=== PATIENT | male | born 1950 | race Caucasian/White ===

== ENCOUNTER 2020-10-09 17:22 | Emergency (ER) | payer MEDICARE, SELFPAY ==
[2020-10-09] VITALS (31 sets, daily range): BP systolic 109–134; BP diastolic 72–89; PULSE 60–77; RESP 12–21; TEMP 36.5–36.7; O2SAT 95–100
--- NOTE | 2020-10-09 17:15 | RT.EKG_ITS ---
APPROVED REPORT Exam: Resting ECG Reason for Exam: Patient Location: E HR:73 bpm ECG Measurements Heart Rate 73 AXIS [place] 157 P 36 QRSd 105 QRS 30 QT 363 T 51 QTc 400 Conclusion Sinus rhythm...normal P axis, V-rate 60- 99. No STEMI. I have reviewed and interpreted ECG and agree with software generated interpretation.
--- NOTE | 2020-10-09 17:30 | DI.RAD_ITS ---
Exam(s) XR CHEST 2V PA LATERAL EXAM: XR CHEST 2V PA LATERAL CLINICAL HISTORY: CP TECHNIQUE: 2D digital imaging was performed. COMPARISON: CR CHEST 2 VIEWS PA,LAT from 08/31/2017 FINDINGS: MEDIASTINUM: Normal. HEART: Normal. PULMONARY VASCULATURE: Normal. LUNGS: Clear. PLEURAL SPACE: No pleural effusion or pneumothorax. BONE:Unremarkable for age. IMPRESSION: No acute abnormality. DATA REPOSITORY: RADIATION DOSE DELIVERED:
--- NOTE | 2020-10-09 17:38 | W.ED.GENAD ---
Discharge Plan Disposition Patient Disposition: HOME Condition: Stable Discharge Details Clinical Impression: Chest pain Primary Care Provider: Teresa,Local ED Provider: Taina Rojas Home Meds and New Rx's Prescriptions: Continued simvastatin 40 MG tablet 1 tab PO DAILY RF: 0 levothyroxine 112 MCG tablet 112 mcg PO DAILY RF: 0 Discharge Instructions Instructions: Chest Pain (ED) Additional Instructions: While you do not have evidence at this time for active heart attack, as we discussed, I am concerned for possible heart disease. I would like for you to have an outpatient stress test soon as possible. I have also asked our care management team to ensure that you get close follow-up with primary care locally. If you develop recurrence or worsening chest pain, shortness of breath, difficulty breathing or other new/worsening symptoms please seek care urgently once again. Please begin taking aspirin daily. Please try to not overexert yourself. Discharge Data Discharge Date/Time-TO BE ENTERED AT DEPARTURE: 10/09/20 21:55 Medical Decision Making Patient is a pleasant 70 year old male presenting today with c/c of chest discomfort that began 5 days ago. He states that he had a very active day which culminated with him jumping into a cold like. He states only when he did so he had a sudden onset of pressure that radiated from the left chest up towards the left side of the neck and down the left arm. Pressure has been consistent since then although he does report that it worsens when he is trying to exercise. States that he attempted to bike 10 miles with only able to go to today secondary to chest pain. States that typically he is very active and exercises on a daily basis with no limitations. Patient reports he did have a stress test approximately 5 years ago which was normal. X-ray performed at [facility]. He denies any nausea or vomiting. States that when pain increases he can experience shortness of breath. On exam, patient appears nontoxic. Vital signs are stable. Normal cardiac exam. He does have pain with palpation over the left side of anterior chest wall. No creptius. Lungs clear. ECG obtained. Reviewed by Dr. Hurley with no acute abnormality noted. CXR reivewed by radiologist: FINDINGS: Lungs: Unremarkable. No consolidation. Pleural spaces: Unremarkable. No pleural effusion. No pneumothorax. Heart/Mediastinum: Unremarkable. No cardiomegaly. Bones/joints: Unremarkable. IMPRESSION: No acute findings. Labs reivewed, no leukocytosis. Stable H&H. CMP WNL. Discussed findings with the patient. He continues to be pain free. Concerned at this time for angina vs. muscular pain. Pain was reproducible on exam with palpation. Will obtain repeat troponin. Repeat troponin remains less than 0.05. Discussed the findings with the patient. Heart score is 4. Patient discussed inpatient versus outpatient admission. As he is at moderate risk, I did recommend inpatient admission. Discussed possibility of unstable angina with the patient. However, patient would prefer ]outpatient management. He would prefer to be discharged to home with plan to lay low and return urgently with new/worsening symptoms. Plan for stress test as soon as possible and f/u with cardiology. Strict return precautions were discussed. All of his questions and concerns were addressed, he is in agreement with this plan. HPI General Mode of arrival: ambulatory. Date/Time Provider Initiated Documentation: 10/09/20 17:24. Limitations to Documentation: no limitations. Information obtained by: patient and RN notes reviewed. History of Present Illness 70 year old M presents to the emergency department with the chief complaint of chest pain, described as moderate, with intensity rated at 7. Quality is described as aching, and is localized to the chest. Patient neck. Patient started experiencing this day(s) and it has been intermittent. Immobilization improves symptom(s), Movement worsens symptoms . Patient notes no other symptoms. and weakness; denies cough, fever/chills, nausea/vomiting, shortness of breath and syncope. Patient did receive the following treatments prior to arrival, none Related Data Home Medications Medication Instructions Recorded Confirmed simvastatin 1 tab PO DAILY 10/02/15 10/09/20 levothyroxine 112 mcg PO DAILY 09/09/17 10/09/20 Allergies Allergy/AdvReac Type Severity Reaction Status Date / Time gluten AdvReac Unverified 10/09/20 17:30 wheat AdvReac Unverified 10/09/20 17:30 General Stated Complaint: Chest Pain SKIP: 2 Review of Systems Constitutional Constitutional: Reports as per HPI, Denies chills, Denies fever(s) and Denies headache(s) ENT Ears, Nose, Mouth, and Throat: Denies dizziness and Denies headache(s) Cardiovascular Cardiovascular: Reports as per HPI, Denies dyspnea and Denies dyspnea on exertion Respiratory Respiratory: Reports as per HPI, Denies chest congestion, Denies cough, Denies pain on inspiration, Denies pain with cough, Denies dyspnea, Denies dyspnea on exertion and Denies wheezing Gastrointestinal Gastrointestinal: Reports as per HPI, Denies abdominal pain, Denies diarrhea, Denies nausea and Denies vomiting Musculoskeletal Musculoskeletal: Reports as per HPI and Denies back pain Integumentary/Breasts Skin/Breast: Reports as per HPI and Denies rash Neurologic Neurologic: Reports as per HPI, Denies dizziness and Denies headache(s) Allergic/Immunologic Allergic/Immunologic: Denies wheezing [facility] Social History Smoking/Tobacco Use Status: Never Smoking risk assessment performed?: Yes Drug use: Never Do you feel safe at home: Yes Do you feel safe in your relationship?: Yes Exam Const General: cooperative, healthy appearing, comfortable, no acute distress and well developed Nutritional Appearance: average body habitus and well nourished Orientation: alert, awake and oriented x3 HENMT Head: normal to inspection Ears: hearing grossly normal bilaterally Mouth: moist mucous membranes Chest Chest: normal inspection of the chest, normal palpation of entire chest wall, no crepitus and tenderness (with palpation over left side of chest wall) Resp Effort & Inspection: normal respiratory effort, able to speak in complete sentences and no respiratory distress Auscultation: clear to auscultation bilaterally, no rales, no rhonchi and no wheezes Cardio Rate: regular rate Rhythm: regular rhythm Heart Sounds: S1 normal and S2 normal GI Inspection: normal to inspection, no edema and non-distended Palpation: soft, no hepatosplenomegaly, not firm, no guarding, not rigid and nontender Auscultation: normal bowel sounds Skin General skin exam: no rashes or lesions noted Trauma: no lacerations or abrasions Neuro General: patient alert, patient awake and patient oriented x3 Cognition: normal cognition Speech: speech normal Gait: normal gait Extrem General: normal to inspection, capillary refill normal, no pedal edema, no calf tenderness, normal gait and other (2+ distal pulses in all extremities) Psych Appearance: grossly normal and well kempt Mental Status: mental status grossly normal Speech and Movement: speech and movement normal Course Vital Signs Vital signs: Vital Signs Temperature 36.7 C 10/09/20 17:27 Pulse 67 10/09/20 17:27 Respiratory Rate 17 10/09/20 17:27 Blood Pressure 134/87 10/09/20 17:27 Pulse Oximetry 99 10/09/20 17:27 Temperature 36.7 C 10/09/20 17:27 Temperature Source Temporal Artery Scan 10/09/20 17:27 Pulse 67 10/09/20 17:27 Respiratory Rate 17 10/09/20 17:27 Respiratory Effort Non-Labored 10/09/20 17:34 Respiratory Depth Normal 10/09/20 17:34 Respiratory Pattern Normal 10/09/20 17:34 Blood Pressure 134/87 10/09/20 17:27 Blood Pressure Position Supine 10/09/20 17:27 Pulse Oximetry 99 10/09/20 17:27 Pain Level 7 10/09/20 17:27
[2020-10-09] MEDS: Aspirin 81 MG CHEW 324 MG CH (17:53)
[2020-10-09 18:12] LABS: Absolute Basophil Count 0.01 10^3/uL (0.0-0.2); Absolute Eosinophil Count 0.11 10^3/uL (0.0-0.7); Absolute Lymphocyte Count 1.81 10^3/uL (1.2-3.4); Absolute Monocyte Count 0.45 10^3/uL (0.1-0.8); Absolute Neutrophil Count 2.06 10^3/uL (1.2-6.7); Basophils % 0.2; Eosinophils % 2.5; HCT 43.7 % (40.0-50.0); HGB 13.8 g/dL (13.5-17.5); Lymphocytes % 40.8; MCH 30.9 pg (27.0-33.0); MCHC 31.6 % (32.0-36.0); MCV 97.8 fL (80-95); MPV 10.5 fL (8.0-11.0); Monocytes % 10.1; Neutrophils % 46.4; Nucleated RBC 0 %; Platelet Count 196 10^3/uL (130-400); RBC 4.47 10^6/uL (4.36-5.78); RDW 12.4 % (11.8-14.1); RDW-SD 45.1 fL; WBC 4.44 10^3/uL (4.4-10.8)
[2020-10-09 18:29] LABS: ALT 26 U/L (16-63); AST 29 U/L (15-37); Alkaline Phosphatase 45 U/L (46-116); Anion Gap 6.9 mmol/L (3-11); BUN 18 mg/dL (7-18); Bilirubin, Total 0.4 mg/dL (0.2-1.0); CO2 29.1 mmol/L (21.0-32.0); Chloride 108 mmol/L (98-107); Glucose 97 mg/dL (74-106); Magnesium 2.2 mg/dL (1.8-2.4); Potassium 3.7 mmol/L (3.5-5.1); Sodium 144 mmol/L (136-145); Total Protein 7.4 g/dL (6.4-8.2)
[2020-10-09 18:30] LABS: Troponin I < 0.05 ng/mL (<0.06)
[2020-10-09 18:36] LABS: INR 1.2 (0.9-1.1)
--- NOTE | 2020-10-09 18:46 | DI.VRAD_ITS ---
PROCEDURE INFORMATION: Exam: XR Chest Exam date and time: 10/09/2020 5:39 PM Age: 70 years old Clinical indication: Other: Cp TECHNIQUE: Imaging protocol: XR of the chest. Views: 2 views. Total images: 2 COMPARISON: CR CHEST 2 VIEWS PA,LAT 08/31/2017 9:34 AM FINDINGS: Lungs: Unremarkable. No consolidation. Pleural spaces: Unremarkable. No pleural effusion. No pneumothorax. Heart/Mediastinum: Unremarkable. No cardiomegaly. Bones/joints: Unremarkable. IMPRESSION: No acute findings. Dictated and Authenticated by: Misbah Walker MD. Ordering:BRITT Her MD
--- NOTE | 2020-10-09 20:30 | RT.EKG_ITS ---
APPROVED REPORT Exam: Resting ECG Reason for Exam: 2 TROP Patient Location: E HR:67 bpm ECG Measurements Heart Rate 67 AXIS [place] 187 P 65 QRSd 92 QRS 14 QT 387 T 40 QTc 408 Conclusion Sinus rhythm...normal P axis, V-rate 60- 99
[2020-10-09 21:00] LABS: Troponin I < 0.05 ng/mL (<0.06)
--- NOTE | 2020-10-09 21:30 | NUR.NOTE ---
Nursing Notereferal sent to cm to est pcp emir but after stress test that was ordered is complete 10/09/20:
--- NOTE | 2020-10-10 10:01 | PDOC.ERCMPRO ---
- If Service Date Differs Date of service: 10/10/20 Time of Service: 10:01 Care Management Progress Note Kendall is seen in the ED for chest pain. At the request of ED provider, CM coordinates a referral to Lars Britton MD, of [facility], on-call provider, to assist Kendall in obtaining a follow up appointment and in establishing care with a PCP. Kendall has [facility] Medicare Replacement Plan for insurance.
[2020-10-11 12:29] LABS: COVID-19 RT-PCR UVMMC Result Negative (Negative)
--- NOTE | 2020-10-12 09:18 | NUR.NOTE ---
Nursing Note: Contacted pt via phone number on file and notified of negative covid results. Pt does not use patient portal and requested a copy- paper copy mailed to address on file.
--- NOTE | 2020-10-18 10:04 | NUR.NOTE ---
Nursing Note: Accessed patient record to get the discharge diagnosis for the stress test that was ordered. There was no reason for test on the order. Hortencia Avendano
== END 2020-10-09 21:55 | disposition home or self-care (01) ==
PROVIDERS: Emergency Provider Physician Assistant
DX: R07.9 Chest pain, unspecified (principal)
CPT/HCPCS: 36415; 80053; 93005; 99284; U0003; 71046; 83735; 84484; 85025; 85610; 85730; 93010; 99283

== ENCOUNTER 2020-10-22 09:32 | Outpatient (CLI) | payer MEDICARE, SELFPAY ==
--- NOTE | 2020-10-22 09:00 | ETT_ITS ---
APPROVED REPORT Exam: Exercise Treadmill Patient Location: Out-Patient Room/Bed: Stress Nurse: Nelida Rubi RN Ordering Provider:ARNOLD VASQUEZ, Contact Number: [phone] BMI: 26.44 Baseline Rhythm: Sinus Rhythm Comment: inverted T wave in lead aVL Indications: Chest pain. Medical History Medical History: HLD Cardiac Medications: Simvastatin Allergies: Gluten, wheat Cardiac Risk Factors: FHX of CAD, FHX of CAD Previous Cardiac Procedures: None Pretest Chest Pain Characteristics: No chest pain Exercise History: Physically active Physical Disabilities: None Lung Sounds: Clear to auscultation Heart Sounds: Regular Stress Test Details Test: Exercise stress testing was performed using a Rui protocol. Rest Stress HR Resting HR Supine: 80 bpm Max Heart Rate (APMHR): 149 bpm Resting HR Standin bpm Target HR (85% APMHR): 126 bpm Max HR Achieved: 143 bpm % of APMHR: 95 Recovery HR: 90 bpm HR response to stress: Normal HR response to stress BP Resting BP Supine: 132/80 mmHg Resting BP Standin/86 mmHg Max BP: 152/70 mmHg Recovery BP: 136/74 mmHg BP response to stress: Normal blood pressure response to stress. ECG Resting ECG: Sinus Rhythm Ectopy: None Stress ECG: Sinus Tachycardia ST Change: No significant ST segment changes noted Arrhythmia: None Recovery ECG: Sinus Rhythm Recovery ST Change: No significant ST segment changes noted Recovery Arrhythmia: None Clinical Reason for Termination: Fatigue Stress Symptoms: General Fatigue Exercise duration: 10 min48 sec Highest Stage Reached: Stage 4: 4.2 mph at 16% grade. Exercise capacity: 13.12 METs Wheeler Treadmill Score: 11 Rate Pressure Product: [id number] Stress ECG Conclusion 1. Resting electrocardiogram was within normal limits 2. Patient exercised on the Rui protocol and completed a workload of 13.12 METS, stopping due to fa tigue 3. Normal heart rate and blood pressure response to exercise. Peak heart rate was 94% of predicted f or age 4. Electrocardiographically there was no evidence of myocardial ischemia 5. There were no significant dysrhythmias Wheeler Treadmill Score is 11 which is Low risk. Stress Test Summary STAGE Time (mins) Speed (mph) Grade (%) HR BP SYMPTOMS METS Supine 80 132/80 Standing 90 122/86 1 3 1.7 10 109 140/68 4.6 2 6 2.5 12 113 148/76 7 3 9 3.4 14 128 10.2 1 min recovery 121 152/70 3 min recovery 88 142/72 6 min recovery 90 136/74
== END 2020-10-22 09:52 ==
PROVIDERS: Visit Provider Physician Assistant
DX: R07.9 Chest pain, unspecified (principal); Z82.49 Family history of ischemic heart disease and other diseases of the circulatory system
CPT/HCPCS: 93016; 93018; 93017

== ENCOUNTER 2022-10-27 08:48 | Emergency (ER) | payer MEDICARE, SELFPAY ==
[2022-10-27 08:53] VITALS: BP 144/76; PULSE 86; RESP 18; TEMP 36.8; O2SAT 99
--- NOTE | 2022-10-27 09:25 | W.ED.GENAD ---
Discharge Plan Disposition Patient Disposition: Home Discharge Details Clinical Impression: Acute exacerbation of chronic low back pain Primary Care Provider: Teresa,Local ED Provider: Mendoza Webster Home Meds and New Rx's Prescriptions: New gabapentin 100 mg capsule 100 - 200 mg PO BID Qty: 120 1RF Continued simvastatin 40 MG tablet 1 tab PO DAILY levothyroxine 112 MCG tablet 112 mcg PO DAILY Discharge Instructions Instructions: Acute Low Back Pain (ED), Lower Back Exercises (ED) Additional Instructions: You may continue to use [id number] medications as discussed, continue low back stretches but please reduce or eliminate strenuous activities especially including any heavy lifting bending or twisting type motions. Continue to take your gabapentin as previously recommended and return the emergency department for new or worsening symptoms. We have placed a referral for physical therapy and pain clinic please follow-up with their offices for arrangement of your appointments. Stand Alone Forms: Physical Therapy Referral Referrals: Thien Stephenson DO [OSTEOPATHIC DOCTOR] - (Please call the office tomorrow afternoon for arrangement of follow-up appointment) Medical Decision Making Patient presenting to the emergency department for chief complaint of low back pain. Patient states long ongoing history of left sacroiliac back pain which she typically sees a pain clinic for in [place] but is up here for the summer. He states he has been out of his gabapentin all summer but has not needed it but typically takes this for his back pain. Patient denies any injury or trauma, bowel or bladder dysfunction, fever chills or symptoms outside of his normal beyond the pain level. Physical exam shows tenderness to the left sacroiliac joint with palpation and hyperextension of the lower extremity. Exam is otherwise unremarkable, no emergent findings for life-threatening or severe back pain. Based upon review of systems history and physical exam I feel the patient is LOW risk for ABDOMINAL AORTIC ANEURYSM, CAUDA EQUINA SYNDROME, EPIDURAL MASS LESION, SPINAL STENOSIS, OR HERNIATED DISK CAUSING SEVERE STENOSIS, thus I consider the discharge disposition reasonable. Discussed with patient risk versus benefit of trying steroids and after discussion of this patient states that he would prefer IM injection so we will give IM Depo-Medrol into the left buttock. Otherwise will refer patient to pain clinic given that he typically gets his pain addressed by pain clinic in [place] but given that he is up here for a couple more months he states he will not be able to see them at least until December. Will refill patient's gabapentin as previously prescribed which patient does have the bottle present. At this time I do not feel the patient requires any advanced imaging given that this is a acute flareup of chronic issue with no significant change. We have discussed the diagnosis and risks, and we agree with discharging home to follow-up with their primary doctor. We also discussed returning to the Emergency Department immediately if new or worsening symptoms occur. We have discussed the symptoms which are most concerning (e.g., saddle anesthesia, urinary or bowel incontinence or retention, changing or worsening pain) that necessitate immediate return. After discussion of diagnosis and plan of care patient has no further needs, questions, or concerns and states clear understanding to return to the emergency department for any worsening symptoms. This documentation was generated using [employer] system, please disregard any oddities of phrase or misspellings. HPI General Mode of arrival: ambulatory. Date/Time Provider Initiated Documentation: 10/27/22 08:57. Limitations to Documentation: no limitations. Information obtained by: patient and RN notes reviewed. History of Present Illness 72 year old M presents to the emergency department with the chief complaint of Back pain, described as moderate, severe and similar to prior episodes, Quality is described as sharp, and is localized to the back. Patient reports radiation to (Left buttock and hip). Patient started experiencing this day(s) (5) and it has been constant. No relieving factors improve symptom(s), Movement worsens symptoms . Patient notes no other symptoms.. Patient did receive the following treatments prior to arrival, NSAID Related Data Home Medications Medication Instructions Recorded Confirmed simvastatin 40 mg tablet 1 tab PO DAILY 10/02/15 10/27/22 levothyroxine 112 mcg tablet 112 mcg PO DAILY 09/09/17 10/27/22 gabapentin 100 mg capsule 100 - 200 mg PO BID #120 caps 10/27/22 Previous Rx's Medication Instructions Recorded gabapentin 100 mg capsule 100 - 200 mg PO BID #120 caps 10/27/22 Allergies Allergy/AdvReac Type Severity Reaction Status Date / Time gluten AdvReac Unverified 10/27/22 08:59 wheat AdvReac Unverified 10/27/22 08:59 General Stated Complaint: Nk/Back Pain SKIP: 3 Review of Systems Constitutional Constitutional: Denies chills and Denies fever(s) Cardiovascular Cardiovascular: Denies chest pain and Denies dyspnea on exertion Respiratory Respiratory: Denies cough and Denies dyspnea on exertion Gastrointestinal Gastrointestinal: Denies abdominal pain, Denies change in bowel habits, Denies diarrhea, Denies nausea and Denies vomiting Genitourinary Genitourinary: Denies difficulty urinating and Denies urinary incontinence Musculoskeletal Musculoskeletal: Reports as per HPI and Reports back pain Neurologic Neurologic: Denies sensory deficit PFSH All Active Problems (Updated 10/27/22 @ 09:35 by Mendoza Webster NP) History of cholecystectomy (Chronic) Hyperlipidemia (Acute) Hypothyroidism (Chronic) Chest pain (Acute) Acute exacerbation of chronic low back pain (Acute) Social History Smoking/Tobacco Use Status: Never Smoking risk assessment performed?: Yes Alcohol Intake: current Alcohol Intake frequency: a few times a week Drug use: Never Substance use type: does not use Housing: house Do you feel safe at home: Yes Do you feel safe in your relationship?: Yes Exam Const General: cooperative and no acute distress Orientation: alert, awake and oriented x3 Neck Neck: normal visual inspection, full ROM and no meningeal signs Resp Effort & Inspection: normal respiratory effort Auscultation: clear to auscultation bilaterally Cardio Rate: regular rate Rhythm: regular rhythm Heart Sounds: S1 normal and S2 normal Back/Spine/Pelvis Thoracic/Lumbar Spine: pain with thoraco-lumbar ROM, paraspinal tenderness, thoraco-lumbar ROM limited, No lumbar spinal tenderness and straight leg raise positive Pelvis: no pain with anterior-posterior compression, no pain with lateral compression, buttock tenderness on the left and sciatic notch tenderness on the left Sacroiliac joints: on the left nontender and by passive hyperextension of lower ext Neuro General: patient alert, patient awake and patient oriented x3 DTR's: Rt Patellar: 2+, Lt Patellar: 2+, Rt Ankle: 2+ and Lt Ankle: 2+ Course Vital Signs Vital signs: Vital Signs Temperature 36.8 C 10/27/22 08:53 Pulse 86 10/27/22 08:53 Respiratory Rate 18 10/27/22 08:53 Blood Pressure 144/76 H 10/27/22 08:53 Pulse Oximetry 99 10/27/22 08:53 Temperature 36.8 C 10/27/22 08:53 Temperature Source Oral 10/27/22 08:53 Pulse 86 10/27/22 08:53 Respiratory Rate 18 10/27/22 08:53 Respiratory Effort Normal, Non-Labored 10/27/22 08:57 Blood Pressure 144/76 H 10/27/22 08:53 Pulse Oximetry 99 10/27/22 08:53 Oxygen Delivery Method Room Air 10/27/22 08:53 Oxygen Flow Rate 0 10/27/22 08:53 Pain Level 10 10/27/22 08:53 PAWSS Have you Been Recently Intoxicated or Drunk Within the Last 30 days?: No Have you Ever Experienced Previous Episodes of Alcohol Withdrawal?: No Have you ever Experienced Withdrawal Seizures?: No Have you ever Experienced Delirium Tremens(DT)s?: No Have you ever undergone Alcohol Rehabilitation Treatment (i.e, inpt ot outpatient treatment programs)?: No Have you ever Experienced Blackouts?: No Have you ever Combined Alcohol with other Downers within the last 90 days?: No Have you ever Combined Alcohol with any other Substance of Abuse during the last 90 days?: No Result: 0
[2022-10-27] MEDS: methylPREDNISolone ACETATE 80 MG/ML VIAL IM (09:56)
== END 2022-10-27 10:00 | disposition home or self-care (01) ==
PROVIDERS: Emergency Provider Nurse Practitioner Family
DX: M54.50 Low back pain, unspecified (principal)
CPT/HCPCS: 96372; 99284; J1040